=== PATIENT | female | born 1935 | race Two or more races ===

== ENCOUNTER 2016-08-21 08:28 | Day surgery (SDC) | payer MEDICARE ==
[2016-08-21] MEDS ORDERED: Lactated Ringer's 500 ML IV ONE (09:51)
[2016-08-21 10:06] VITALS: O2SAT 100
[2016-08-21] MEDS ORDERED: Propofol 10 mg/ml Inj (20 ML) ONE (10:34)
[2016-08-21 11:47] VITALS: BP 113/77; PULSE 68; RESP 19; TEMP 97
== END 2016-08-21 12:30 | disposition home or self-care (01) ==
LOC: H.ENDO 08:28
PROVIDERS: ATTEND Internal Medicine Gastroenterology
DX: K30 Functional dyspepsia (principal); J45.909 Unspecified asthma, uncomplicated; E78.5 Hyperlipidemia, unspecified; I10 Essential (primary) hypertension; K44.9 Diaphragmatic hernia without obstruction or gangrene; K31.9 Disease of stomach and duodenum, unspecified; K22.8 Other specified diseases of esophagus
CPT/HCPCS: 43239; 88305; J2001; J2704; J3010; J7120